=== PATIENT | female | born 1985 | race Caucasian/White ===

== ENCOUNTER 2016-07-26 23:18 | Emergency (ER) | payer MEDICAID ==
[~2016-07-26] VITALS: Ht 152.4 cm; Wt 79.5 kg
[~2016-07-26 23:18] MED LIST: BACTROBAN 22GM22 GM NAS; D H E IJ; DOXYCYCLINE 10100 MG PO; HIBICLENS4% TP
[2016-07-26 23:20] VITALS: TEMP 98.1
[2016-07-27] MEDS ORDERED: FIORICET 325 MG1 TA1 PO (01:35)
[2016-07-27 02:11] VITALS: BP 117/60; PULSE 104
== END 2016-07-27 02:12 | disposition home or self-care (01) ==
LOC: COL.ER 23:18
DX: G43.909 Migraine, unspecified, not intractable, without status migrainosus (principal); F17.210 Nicotine dependence, cigarettes, uncomplicated; I34.1 Nonrheumatic mitral (valve) prolapse; J45.909 Unspecified asthma, uncomplicated

== ENCOUNTER → 2017-08-22 | Outpatient (CLI) | payer MEDICAID ==
[~2017-08-22] MED LIST changes: +FIORICET 325 MG1 TA1 PO
== END ==
LOC: COL.PUL 11:00
DX: F17.210 Nicotine dependence, cigarettes, uncomplicated (principal); Z87.09 Personal history of other diseases of the respiratory system
CPT/HCPCS: J7674